=== PATIENT | female | born 1935 | race Hispanic/Latino ===

== ENCOUNTER 2016-12-04 06:19 | Day surgery (SDC) | payer MEDICARE, OTHER ==
[2016-12-01 07:39] VITALS: BMI 30.9
[2016-12-04 07:00] LABS: ADD MANUAL DIFF? NO
[2016-12-04] MEDS ORDERED: Midazolam 2 MG/2 ML VIAL ONE ×2 (07:16→08:22)
[2016-12-04 07:23] LABS: BASO # 0.09 K/mm3 (0.0-2.0); BASO % 1.1 % (0.0-3.0); EOS # 0.3 (0.0-0.7); EOS % 3.4 % (1.5-5.0); GRAN # 4.63 (1.4-6.5); GRAN % 55.7 % (50.0-68.0); HEMATOCRIT 40.5 % (36.0-48.0); LYMPH # 2.6 (1.2-3.4); MEAN CELL VOLUME 89.8 fL (80.0-105.0); MEAN CORPUSCULAR HEMOGLOBIN 30.4 pg (25.0-35.0); MEAN CORPUSCULAR HGB CONC 33.8 g/dl (31.0-37.0); MEAN PLATELET VOLUME 9.9 fl (7.0-11.0); MONO # 0.7 (0.1-0.6); MONO % 8.8 % (1.0-6.0); PLATELET COUNT 232 10^3/uL (120.0-450.0); RED CELL DISTRIBUTION WIDTH 13.6 % (11.5-14.5); WHITE BLOOD COUNT 8.3 10^3/ul (4.5-11.0)
[2016-12-04 07:28] LABS: INR 1.09 (0.93-1.08)
[2016-12-04 07:30] LABS: BLOOD UREA NITROGEN 32 mg/dL (7-21); CALCIUM 9.4 mg/dL (8.4-10.5); CARBON DIOXIDE 27 mmol/L (21-33); CHLORIDE 101 mmol/L (98-107); CHOLESTEROL 135 mg/dL (130-200); GFR AFRICAN-AMERICAN > 60; POTASSIUM 4.4 mmol/L (3.6-5.0); SODIUM 139 mmol/L (132-148)
[2016-12-04 07:38] LABS: GLUCOSE,RANDOM 316 mg/dL (70-110)
[2016-12-04] MEDS ORDERED: Insulin Regular 1 UNITS/0.01 ML ML SC ONE (08:17)
[2016-12-04] MEDS ORDERED: Adenosine 90 mg/30mL IV ONE (08:34)
[2016-12-04] MEDS ORDERED: Sodium Chloride 0.9% 1,000 ML IV SCH (09:30)
--- NOTE | 2016-12-04 10:13 | CARDCATH ---
PROCEDURE DATE: 12/04/2016 HISTORY: The patient is an 81-year-old woman who presents with an abnormal stress test and chest sohail n. PAST MEDICAL HISTORY: Is notable for previous anterior wall myocardial infarction as well as multive ssel PTCA and stent in the past. She suffers from diabetes mellitus, hypercholesterolemia and hypert ension. Because of this, cardiac catheterization was recommended. PROCEDURE: Left heart catheterization with coronary angiography and left ventriculogram. This was f ollowed by FFR and followed by PTCA and stent of an LAD. The right femoral artery was cannulated with a 6-Khmer sheath. There were no complications. The findings on catheterization revealed a left main artery that was unremarkable. The circumflex artery and obtuse marginal branches revealed intimal irregularities without significan t stenoses. The LAD revealed 2 patent stents, one in the proximal and one in the midportion. Proximal to the fir st stent, there was an eccentric 70-80% stenosis seen in the MOLINA projection. The diagonal vessels were free of significant disease. The RCA was a dominant vessel and found to have a patent stent at its ostium with no critical lesions throughout the rest of the vessel. LV function revealed mild apical hypokinesis with an overall preserved LV function with an ejection f raction of 55%. An FFR was performed of the LAD which revealed an FFR of 0.77. The patient was started on intravenous Angiomax. Under fluoroscopic guide, the guiding catheter was placed in the ostium of the left main artery. The FFR wire was used across the LAD lesion. A 2.75 x 18 mm drug-eluting stent was placed and deployed at 14 atmospheres of pressure. Repeat birdie nary angiography revealed an excellent result with resolution of the lesion which was measured approx imately 16 mmHg. Repeat coronary angiography revealed an excellent result with no residual stenosis and LANDON 3 flow. Angio-Seal was used to close the femoral artery site. The patient tolerated the procedure well. IN SUMMARY: 1. The procedure was a successful percutaneous transluminal coronary angioplasty and stent of a crit ically stenosed proximal left anterior descending. 2. Fractional flow reserve was 0.77. 3. Cardiac catheterization revealed patent stent in the right coronary artery with 2 patent stents i n the left anterior descending with a new 80% stenosis in the proximal left anterior descending. 4. Left ventricular function: Ejection fraction was 55% with mild apical hypokinesis. Given these findings, the patient will need to remain on aspirin indefinitely and Plavix for at least a year and undergo a strict cardiac risk reduction program. Oswald Davis MD cc: [phone] TT: 12/04/2016 10:13:19 mn
--- NOTE | 2016-12-04 15:25 | HP ---
The patient is an 81-year-old, known to me from office practice. The patient had stress test done as outpatient that was found to be abnormal, so she was brought in electively to have cardiac catheteri zation done by Dr. Davis and patient is being admitted after the procedure. She did not have any ches t pain. No shortness of breath, no dizziness. PAST MEDICAL HISTORY: Significant for: 1. Hypertension. 2. Coronary artery disease, status post angioplasty. 3. History of sick sinus syndrome, status post pacemaker placement. 4. Hyperlipidemia. ALLERGIES: She is not allergic to any medications. MEDICATIONS AT HOME: She is on simvastatin 40 mg daily, losartan 100 mg daily, insulin 75/25 10 unit s twice a day, Levemir 20 units at bedtime, folic acid 1 mg daily, Plavix 75 daily, atenolol 12.5 haider ly, aspirin 81 daily. SOCIAL HISTORY: She lives in a senior citizen building. Denies smoking, drinking or alcohol use. REVIEW OF SYSTEMS: Significant for back pain and knee pain. PHYSICAL EXAMINATION: GENERAL: She is awake and alert, communicative. VITAL SIGNS: She is afebrile, pulse 61, respirations 18, blood pressure 132/62. LUNGS: Bilateral fair airflow, no rhonchi or crackle. HEART: S1, S2 audible. No murmur. ABDOMEN: Soft, nontender, no rebound, no guarding. NEUROLOGIC: She is awake and alert, communicative. EXTREMITIES: Her right groin has a pressure bandage. Bilateral legs intact pulses. LABORATORY EXAMINATION: WBCs 8.3, hemoglobin 13.7, hematocrit 40, platelets of 232. PT 11.8, INR 1. 09. Chemistry: Sodium 139, potassium 4.4, chloride 101, CO2 27, BUN 32, creatinine 1.0, blood sugar 316. ASSESSMENT: 1. Status post cardiac cath and status post proximal left anterior descending angioplasty and she borrero s patent stent of right coronary artery and 2 patent stents in the anterior descending with a new 80% stenosis in the proximal left anterior descending that was stented. 2. Hypertension. 3. Insulin-dependent diabetes. 4. Hyperlipidemia. PLAN: We will restart patient on her usual medication. I will continue her on IV fluid. I will hol d her CHARLOTTE inhibitor. Will order for CBC, CMP in a.m. If patient remains stable, she will be dischar ge home in a.m. Yoly Osuna MD cc: [phone] TT: 12/04/2016 15:24:34 en
[2016-12-04] MEDS ORDERED: Insulin Lispro (humaLOG) MIX 75/25(10 ml) SC SCH (16:30)
[2016-12-04] MEDS ORDERED: Insulin Detemir 100 units/ml Vial (Levemir) SC SCH (22:00)
--- NOTE | 2016-12-05 02:20 | CARD ---
APPROVED REPORT EKG Measurement Heart [id number] <Conclusion> Electronic ventricular pacemaker
--- NOTE | 2016-12-05 02:27 | CARD ---
APPROVED REPORT EKG Measurement Heart [id number] <Conclusion> Demand Ventricular pacemaker ST & T wave abnormality, consider anterolateral ischemia Prolonged QT Abnormal ECG
[2016-12-05] MEDS ORDERED: Insulin Lispro (humaLOG) MIX 75/25(10 ml) SC SCH (07:30)
[2016-12-05 07:42] LABS: ADD MANUAL DIFF? NO
[2016-12-05 07:49] LABS: BASO # 0.05 K/mm3 (0.0-2.0); BASO % 0.7 % (0.0-3.0); EOS # 0.3 (0.0-0.7); EOS % 3.8 % (1.5-5.0); GRAN # 5.22 (1.4-6.5); GRAN % 68.9 % (50.0-68.0); HEMATOCRIT 40.2 % (36.0-48.0); LYMPH # 1.4 (1.2-3.4); LYMPH % 18.4 % (22.0-35.0); MEAN CELL VOLUME 89.9 fL (80.0-105.0); MEAN CORPUSCULAR HGB CONC 33.3 g/dl (31.0-37.0); MEAN PLATELET VOLUME 9.2 fl (7.0-11.0); MONO # 0.6 (0.1-0.6); MONO % 8.2 % (1.0-6.0); PLATELET COUNT 205 10^3/uL (120.0-450.0); RED CELL DISTRIBUTION WIDTH 13.6 % (11.5-14.5); WHITE BLOOD COUNT 7.6 10^3/ul (4.5-11.0)
[2016-12-05 08:40] LABS: BLOOD UREA NITROGEN 21 mg/dL (7-21); CALCIUM 9.6 mg/dL (8.4-10.5); CARBON DIOXIDE 29 mmol/L (21-33); CHLORIDE 102 mmol/L (98-107); GFR AFRICAN-AMERICAN > 60; GLUCOSE,RANDOM 161 mg/dL (70-110); POTASSIUM 4.4 mmol/L (3.6-5.0); SODIUM 141 mmol/L (132-148)
[2016-12-05 12:10] VITALS: BP 113/68; PULSE 62; RESP 16; TEMP 97.6; O2SAT 97
--- NOTE | 2016-12-05 13:32 | PN ---
DATE: 12/05/2016 The patient is ambulating without chest pain. PHYSICAL EXAMINATION: VITAL SIGNS: Blood pressure is 113/68, heart rate is in the 60s. NECK: Negative JVD. LUNGS: Without rales. HEART: Reveals S1, S2. EXTREMITIES: The right groin site is stable. Hemoglobin of 13.4. Chemistries are unremarkable. Glucose is 161. IMPRESSION: 1. Stable post percutaneous transluminal coronary angioplasty and stent of a left anterior descendin g. 2. Coronary artery disease. 3. Diabetes mellitus. 4. Hypercholesterolemia. Given these findings, the patient is stable for discharge. Followup and instructions have been given to the patient in detail. Oswald Davis MD cc: [phone] TT: 12/05/2016 13:31:47 Confirmation # [id number] Dictation # [id number]
--- NOTE | 2016-12-05 14:14 | DS ---
The patient is 81 years old, seen and examined, lying in bed, comfortable. No chest pain, no shortne ss of breath. No nausea, vomiting, or diarrhea. PHYSICAL EXAMINATION: VITAL SIGNS: She is afebrile, pulse 55, respirations 20, blood pressure 127/72. LUNGS: Bilateral fair airflow, no rhonchi or crackle. HEART: S1, S2 audible. No murmur. ABDOMEN: Soft, obese, nontender. Right cath site looks healthy. No hematoma. NEUROLOGIC: She is awake and alert, communicative. LABORATORY EXAM: WBC 7.6, hemoglobin 13, hematocrit 40, platelet 205. Chemistry: Sodium 141, potas sium 4.4, chloride 102, CO2 of 29, BUN 21, creatinine 0.9, blood sugar of 161. ASSESSMENT AND PLAN: 1. Status post cardiac catheterization. 2. Coronary artery disease, status post angioplasty. 3. Status post proximal left anterior descending angioplasty. 4. Insulin dependent diabetes. 5. Hyperlipidemia. 6. Degenerative disk disease. PLAN: The patient is clinically stable. She will be discharged home. She is given a prescription o f Plavix 75 daily to be given for another year. She will continue on aspirin, folic acid. She will maintain herself on her previous doses of insulin. She will continue on Lipitor and atenolol. I shaniqua l follow up patient in office in 2-3 weeks. Yoly Osuna MD cc: [phone] TT: 12/05/2016 14:14:05 sn
--- NOTE | 2016-12-05 22:42 | CARD ---
APPROVED REPORT EKG Measurement Heart [id number] <Conclusion> Electronic ventricular pacemaker
== END 2016-12-05 14:06 | disposition home or self-care (01) ==
LOC: CATH 06:19 → 2RSO 09:17 → CATH 12-05 14:06
PROVIDERS: ATTEND Internal Medicine
DX: I25.10 Atherosclerotic heart disease of native coronary artery without angina pectoris (principal); I25.2 Old myocardial infarction; I10 Essential (primary) hypertension; E11.9 Type 2 diabetes mellitus without complications; E78.00 Pure hypercholesterolemia, unspecified; E78.5 Hyperlipidemia, unspecified; Z79.82 Long term (current) use of aspirin; Z79.4 Long term (current) use of insulin; Z95.0 Presence of cardiac pacemaker; Z95.5 Presence of coronary angioplasty implant and graft
CPT/HCPCS: 36415 ×2; 80048 ×2; 80061; 82948 ×2; 85025 ×2; 85610; 85730; 86850; 86900; 93005 ×2; 93458; 93571; 99152; 99153; C1760; C1769 ×2; C1874; C1887; C2629; C9600; J0153; J0583; J2250; J3010; J7040 ×2

== ENCOUNTER 2018-03-08 06:02 | Day surgery (SDC) | payer MEDICARE, OTHER ==
[2018-02-25 08:32] VITALS: BMI 31.8
[2018-03-08 07:07] LABS: INR 1.05; PARTIAL THROMBOPLASTIN TIME 28.6 Seconds (25.1-36.5); PROTHROMBIN TIME 12.1 SECONDS (9.4-12.5)
[2018-03-08] MEDS ORDERED: Lidocaine PF 2% (5 ml) Inj (For Cardiac Arrhy) ONE (07:07)
[2018-03-08] MEDS ORDERED: Iodixanol 320 MG/ML 200 ML BOTTLE IV ONE (07:08)
[2018-03-08] MEDS ORDERED: Iohexol 350mgl/ml 50 ML ONE (07:08)
[2018-03-08] MEDS ORDERED: Iodixanol 320 MG/ML 100 ML BOTTLE IV ONE (07:08)
[2018-03-08] MEDS ORDERED: Nitroglycerin 50mg in D5W 0 MG/0 ML BOTTLE IV ONE (07:09)
[2018-03-08] MEDS ORDERED: Phenylephrine 10 mg/ml Inj ONE (07:09)
[2018-03-08 07:14] LABS: BLOOD UREA NITROGEN 19 mg/dL (7-21); CALCIUM 9.8 mg/dL (8.4-10.5); GFR AFRICAN-AMERICAN > 60; GFR NON-AFRICAN AMERICAN 60
[2018-03-08 07:19] LABS: BASO # 0.08 K/mm3 (0.0-2.0); BASO % 0.9 % (0.0-3.0); EOS # 0.2 (0.0-0.7); EOS % 2.4 % (1.5-5.0); GRAN # 5.29 (1.4-6.5); GRAN % 58.8 % (50.0-68.0); HEMOGLOBIN 13.1 g/dL (12.0-16.0); LYMPH # 2.8 (1.2-3.4); LYMPH % 30.6 % (22.0-35.0); MEAN CELL VOLUME 90.6 fl (80.0-105.0); MEAN CORPUSCULAR HGB CONC 33.2 g/dl (31.0-37.0); MEAN PLATELET VOLUME 9.1 fl (7.0-11.0); MONO # 0.7 (0.1-0.6); MONO % 7.3 % (1.0-6.0); RBC 4.36 10^6/uL (3.5-6.1); RED CELL DISTRIBUTION WIDTH 12.9 % (11.5-14.5)
[2018-03-08] MEDS ORDERED: Midazolam 2 MG/2 ML VIAL ONE ×2 (07:59→08:02)
--- NOTE | 2018-03-08 08:23 | CARD ---
APPROVED REPORT Date of service: 03/08/2018 EKG Measurement Heart [id number] <Conclusion> Electronic ventricular pacemaker
[2018-03-08] MEDS ORDERED: Sodium Chloride 0.9% 1,000 ML IV SCH (09:30)
--- NOTE | 2018-03-08 09:44 | CARDCATH ---
Copied To: Oswald Davis MD Attending MD: Oswald Davis MD PROCEDURE DATE: 03/08/2018 PTCA AND STENT HISTORY: The patient is an 82-year-old woman, who presents with an abnormal stress test. The patient has documented coronary artery disease. In addition, she suffers from hypertension, hypercholesterolemia and diabetes mellitus. The patient has had stents in 2 arteries in the past. Because of this, cardiac catheterization was recommended. PROCEDURE: Left heart catheterization with coronary arteriography, left ventriculogram followed by PTCA and stent of an RCA with a drug-eluting stent. Rhe right femoral artery was cannulated with a 6-Cameroonian sheath. There were no complications. I performed moderate sedation, which included the presence of an independent trained observer that assisted in monitoring the patient's level of consciousness and physiologic status. After administration of Versed and fentanyl, my intra service time was 30 minutes. The findings on catheterization revealed a left ventricle that contracted normally. Estimated ejection fraction of 60%. The patient had a right dominant circulation. The RCA revealed a patent stent in the midportion. In its ostium, there is an 80% eccentric stenosis noted. The left main artery was unremarkable. The LAD revealed a patent stent in its proximal portion. The rest of the LAD revealed intimal irregularities without critical lesions. The circumflex artery and obtuse marginal branches were free of significant disease. The patient was started on intravenous Angiomax on the fluoroscopic guide, the guiding catheter was placed in the ostium of the RCA, which is noted marked dampening. An ATW wire was placed in the RCA past critical stenosis. A 2.5 x 8 mm drug-eluting stent was placed and deployed at 14 atmospheres of pressure in the ostium of the RCA. This was postdilated with a 3 balloon. Repeat coronary arteriography revealed resolution of the stenosis with an excellent result with no residual stenosis and LANDON-3 flow. Angio-Seal was used to close the femoral artery site. The patient tolerated the procedure well. In summary, the procedure was successful PTCA and stent of an 80% ostial stenosis of the RCA with a drug-eluting stent. Cardiac catheterization revealed patent stent in the LAD and mid RCA. LV function is normal. Given these findings, the patient will remain on aspirin indefinitely and Plavix for a year and undergo a cardiac risk reduction program. Oswald Davis MD [facility] # [id number]
--- NOTE | 2018-03-08 12:17 | CARD ---
APPROVED REPORT Date of service: 03/08/2018 EKG Measurement Heart [id number] <Conclusion> Electronic ventricular pacemaker
[2018-03-08] MEDS: Insulin Lispro (humaLOG) MIX 75/25(10 ml) SC SCH (13:33)
--- NOTE | 2018-03-08 14:27 | HP ---
Copied To: Yoly Osuna MD Attending MD: Yoly Osuna MD HISTORY OF PRESENT ILLNESS: The patient is 82 years old, known to me from office practice, had recent follow up with Dr. Davis, who scheduled her for elective cardiac catheterization since she was found to have abnormal stress test that was done on 12/10/2017 that showed abnormal myocardial perfusion with partial reversible anterior defects suspicious for residual ischemia. The patient has cardiac cath done today and underwent RCA angioplasty with drug eluted stent and she has patent stents in LAD and mid RCA. Denies any chest pain. No shortness of breath. PAST MEDICAL HISTORY: Significant for, 1. Hypertension. 2. History of symptomatic bradycardia and sick sinus syndrome, has pacemaker placed. 3. Coronary artery disease, status post multiple angioplasty. 4. Hyperlipidemia. 5. Insulin-dependent diabetes. ALLERGIES: SHE IS NOT ALLERGIC TO ANY MEDICATIONS. MEDICATIONS AT HOME: The patient is on losartan 100 mg daily, simvastatin 40 mg daily, Trulicity 1.5 weekly, Plavix 75 daily, insulin 75/25 at 60 units before breakfast and 55 units before dinner. She is on Levemir 20 units at bedtime, atenolol 12.5 daily, aspirin 81 daily, folic acid 1 mg daily. SOCIAL HISTORY: She lives in senior citizen building. Denies smoking, drinking or alcohol use. PHYSICAL EXAMINATION: GENERAL: She is awake, alert, oriented, communicative, not in any distress. No chest pain. No shortness of breath. VITAL SIGNS: She is afebrile, pulse 65, respirations 19, blood pressure 133/71. LUNGS: Bilateral fair airflow. No rhonchi or crackle. HEART: S1 and S2 audible. ABDOMEN: Soft. Nontender. No rebound. No guarding. NEUROLOGICAL: She is awake, alert, oriented, communicative. LABORATORY EXAM: WBC is 9, hemoglobin 13, hematocrit 39.5, platelet 251. PT 12.1, INR 1.05. Chemistry: Sodium 144, potassium 4.5, chloride 104, CO2 of 28, BUN 19, creatinine 0.9, blood sugar of 152. ASSESSMENT: 1. Elective cardiac catheterization with angioplasty and had drug eluted stent placed in right coronary artery. 2. Coronary artery disease. 3. Insulin-dependent diabetes. 4. Hypertension. 5. Hyperlipidemia. 6. Status post pacemaker placement. PLAN: Currently, the patient is on aspirin, atorvastatin, Plavix. We will resume her medication. We will monitor overnight. If she remains stable, possible discharge in the a.m. Yoly Osuna MD
[2018-03-08] MEDS ORDERED: Insulin Lispro (humaLOG) MIX 75/25(10 ml) SC SCH (16:30)
[2018-03-08] MEDS ORDERED: Insulin Detemir 100 units/ml Vial (Levemir) SC SCH (22:00)
[2018-03-08] MEDS ORDERED: INSULIN DETEMIR 20 UNIT SQ SCH (22:00)
[2018-03-09 06:26] VITALS: O2SAT 95
[2018-03-09 07:09] LABS: BASO # 0.05 K/mm3 (0.0-2.0); BASO % 0.5 % (0.0-3.0); EOS # 0.2 (0.0-0.7); EOS % 1.9 % (1.5-5.0); GRAN # 6.14 (1.4-6.5); GRAN % 63.5 % (50.0-68.0); HEMOGLOBIN 12.5 g/dL (12.0-16.0); LYMPH # 2.5 (1.2-3.4); LYMPH % 25.4 % (22.0-35.0); MEAN CORPUSCULAR HEMOGLOBIN 29.6 pg (25.0-35.0); MEAN CORPUSCULAR HGB CONC 32.6 g/dl (31.0-37.0); MEAN PLATELET VOLUME 9.1 fl (7.0-11.0); MONO # 0.8 (0.1-0.6); MONO % 8.7 % (1.0-6.0); RBC 4.22 10^6/uL (3.5-6.1); RED CELL DISTRIBUTION WIDTH 13.1 % (11.5-14.5); WHITE BLOOD COUNT 9.7 10^3/ul (4.5-11.0)
[2018-03-09 07:18] LABS: BLOOD UREA NITROGEN 21 mg/dL (7-21); GFR AFRICAN-AMERICAN > 60; GFR NON-AFRICAN AMERICAN 60
[2018-03-09] MEDS: Insulin Lispro (humaLOG) MIX 75/25(10 ml) SC SCH ×2 (08:47→09:18)
--- NOTE | 2018-03-09 10:28 | CARD ---
APPROVED REPORT Date of service: 03/09/2018 EKG Measurement Heart [id number] <Conclusion> Electronic ventricular pacemaker
[2018-03-09 13:51] VITALS: BP 114/64; PULSE 64; RESP 18; TEMP 98.2
--- NOTE | 2018-03-09 18:00 | DS ---
Copied To: Yoly Osuna MD Attending MD: Yoly Osuna MD HISTORY OF PRESENT ILLNESS: The patient is 82 years old, was electively brought because she has abnormal stress test and needed cardiac cath. Underwent RCA angioplasty, doing well. PHYSICAL EXAMINATION: GENERAL: She is awake, alert, oriented, communicative. VITAL SIGNS: She is afebrile, pulse 61, respirations 20, blood pressure 126/64. LUNGS: Bilateral good airflow. No rhonchi or crackle. HEART: S1 and S2 audible. ABDOMEN: Soft. Nontender. No rebound. No guarding. NEUROLOGICAL: The patient is awake, alert, oriented, communicative. LABORATORY EXAM: WBC is 9.7, hemoglobin 12.5, hematocrit 38.4, platelet 223. Chemistry: Sodium 143, potassium 4.1, chloride 104, CO2 of 28, BUN 21, creatinine 0.9, blood sugar of 126. ASSESSMENT: 1. Abnormal stress test, status post cardiac catheterization, has right coronary artery angioplasty done. 2. History of sick sinus syndrome. 3. Status post pacemaker placement. 4. Insulin-dependent diabetes. 5. Hypertension. 6. Hyperlipidemia. PLAN: The patient is going to be discharged home. She is going to be discharged on losartan, simvastatin, Plavix, Trulicity. She is on insulin. She is going to continue aspirin, atenolol and folic acid. Yoly Osuna MD
== END 2018-03-09 14:19 | disposition home or self-care (01) ==
LOC: CATH 06:02 → 2RSO 09:35 → CATH 03-09 14:19
PROVIDERS: ATTEND Internal Medicine Cardiovascular Disease
DX: I25.10 Atherosclerotic heart disease of native coronary artery without angina pectoris (principal); R94.39 Abnormal result of other cardiovascular function study; I10 Essential (primary) hypertension; E78.00 Pure hypercholesterolemia, unspecified; E78.5 Hyperlipidemia, unspecified; E11.9 Type 2 diabetes mellitus without complications; I49.5 Sick sinus syndrome; Z79.4 Long term (current) use of insulin; Z79.82 Long term (current) use of aspirin; Z95.0 Presence of cardiac pacemaker; Z95.5 Presence of coronary angioplasty implant and graft
CPT/HCPCS: 36415 ×2; 80048 ×2; 82948; 85025 ×2; 85610; 85730; 86850; 86900; 93005 ×2; 93458; 99152; C1725; C1760; C1769 ×2; C1874; C1887; C2629; C9600; J0583; J1644; J2250; J3010; J7030; Q9966; Q9967

== ENCOUNTER 2018-06-10 02:36 | Observation (INO) | payer MEDICARE, OTHER ==
[2018-06-10 02:37] VITALS: BMI 30.9
--- NOTE | 2018-06-10 02:57 | ED PDOC ---
Arrival/HPI - General Chief Complaint: Flu-like Symptoms Time Seen by Provider: 06/10/18 02:41 Historian: Patient - History of Present Illness Narrative History of Present Illness (Text): 06/10/18 02:55 A 82 year old female, whose past medical history includes IDDM, presents to the emergency department complaining of "flu like symptoms" since a week ago. Patient reports experiencing a decreased appetite, weakness, cough, low blood sugar and dyspnea on exertion. Patient denies any fever, chills, chest pain, diarrhea, nausea, vomiting, urinary symptoms, back pain, abdominal pain, neck pain, headache, dizziness, or any other complaints. PMD: Dr. Osuna Time/Duration: 1 week Symptom Onset: Gradual Activities at Onset: Light Context: Home Past Medical History - Provider Review Nursing Documentation Reviewed: Yes - Infectious Disease Hx of Infectious Diseases: None - Tetanus Immunization Tetanus Immunization: Unknown - Past Medical History Past Medical History: No Previous - Cardiac Hx Cardiac Disorders: Yes Hx Pacemaker: Yes - Pulmonary Hx Respiratory Disorders: No - Neurological Hx Neurological Disorder: No - HEENT Hx HEENT Disorder: No - Renal Hx Renal Disorder: No - Endocrine/Metabolic Hx Endocrine Disorders: Yes Hx Diabetes Mellitus Type 2: Yes (IDDM) - Hematological/Oncological Hx Blood Disorders: No - Integumentary Hx Dermatological Disorder: No - Musculoskeletal/Rheumatological Hx Musculoskeletal Disorders: No - Gastrointestinal Hx Gastrointestinal Disorders: No - Genitourinary/Gynecological Hx Genitourinary Disorders: No - Psychiatric Hx Psychophysiologic Disorder: No Hx Substance Use: No - Past Surgical History Past Surgical History: No Previous - Surgical History Hx Cardiac Catheterization: Yes (stents x3) - Anesthesia Hx Anesthesia Reactions: No Hx Malignant Hyperthermia: No - Suicidal Assessment Feels Threatened In Home Enviroment: No Family/Social History - Physician Review Nursing Documentation Reviewed: Yes Family/Social History: No Known Family HX Smoking Status: Never Smoked Hx Alcohol Use: No Hx Substance Use: No Allergies/Home Meds Allergies/Adverse Reactions: Allergies No Known Allergies Allergy (Verified 06/10/18 02:40) Home Medications: Home Meds Medication Instructions Recorded Confirmed Insulin Lispro Mix 75/25 [HumaLOG 55 units SC ACD 03/06/14 03/08/18 Mix 75/25] Simvastatin 40 mg PO QPM 03/06/14 03/08/18 Folic Acid 1 mg PO DAILY 08/31/16 03/08/18 Insulin Detemir [Levemir] 20 units SQ HS 08/31/16 03/08/18 Aspirin [Ecotrin] 81 mg PO DAILY 12/01/16 03/08/18 Atenolol [Tenormin] 12.5 mg PO DAILY 12/01/16 03/08/18 Cholecalciferol (Vitamin D3) 1,000 unit PO BID 12/01/16 03/08/18 [Vitamin D3] Insulin Lispro Mix 75/25 [humalog 60 units SC ACB 12/01/16 03/08/18 Mix 75/25 75 U/Ml-25 U/Ml 10 Ml] Losartan Potassium 100 mg PO DAILY 12/01/16 03/08/18 Clopidogrel [Plavix] 75 mg PO DAILY 12/05/16 03/08/18 Dulaglutide [Trulicity] 1.5 mg SC QWK 12/10/17 03/08/18 Review of Systems - Physician Review All systems were reviewed & negative as marked: Yes - Review of Systems Constitutional: absent: Fevers, Night Sweats Respiratory: Cough. absent: SOB Cardiovascular: RANGEL. absent: Chest Pain Gastrointestinal: Appetite Changes (decreased appetite). absent: Abdominal Pain, Diarrhea, Nausea, Vomiting Genitourinary Female: absent: Urine Output Changes Musculoskeletal: absent: Back Pain, Neck Pain Neurological: Other (weakness). absent: Headache, Dizziness Physical Exam Vital Signs Reviewed: Yes Vital Signs Temp 06/10/18 02:51 98.5 F Temperature: Afebrile - Systems Exam Head: Present: Atraumatic, Normocephalic Pupils: Present: PERRL Extroacular Muscles: Present: EOMI Conjunctiva: Present: Normal Mouth: Present: Moist Mucous Membranes Neck: Present: Normal Range of Motion Respiratory/Chest: Present: Clear to Auscultation, Good Air Exchange. No: Respiratory Distress, Accessory Muscle Use Cardiovascular: Present: Regular Rate and Rhythm, Normal S1, S2. No: Murmurs Abdomen: No: Tenderness, Distention, Peritoneal Signs Back: Present: Normal Inspection Upper Extremity: Present: Normal Inspection. No: Cyanosis, Edema Lower Extremity: Present: Normal Inspection. No: Edema Neurological: Present: GCS=15, CN II-XII Intact, Speech Normal Skin: Present: Warm, Dry, Normal Color. No: Rashes Psychiatric: Present: Alert, Oriented x 3, Normal Insight, Normal Concentration Medical Decision Making ED Course and Treatment: 06/10/18 02:58 Impression: 82 year old female presenting to the emergency room for flu like symptoms. Plan: -- EKG -- Cardiac ISO -- CMP -- Btype natriuretic peptide -- CBC -- COAGs -- Rapid Flu A/B -- Urinalysis -- Reassess and disposition Prior Visits: Notes and results from previous visits were reviewed. Progress Notes: 06/10/18 03:18 EKG: Ordered, reviewed, and independently interpreted the EKG. Rate : 66 BPM Rhythm : Atrial Fibrillation Interpretation : Demand Pacemaker 06/10/18 05:[address] Osuna who accepts the patient into her service for further observation and requests Dr. Davis on consult. - Scribe Statement The provider has reviewed the documentation as recorded by the Scribe Cathleen Swenson All medical record entries made by the Scribe were at my direction and personally dictated by me. I have reviewed the chart and agree that the record accurately reflects my personal performance of the history, physical exam, medical decision making, and the department course for this patient. I have also personally directed, reviewed, and agree with the discharge instructions and disposition. Disposition/Present on Arrival - Present on Arrival Any Indicators Present on Arrival: No History of DVT/PE: No History of Uncontrolled Diabetes: Yes Urinary Catheter: No History of Decub. Ulcer: No History Surgical Site Infection Following: None - Disposition Have Diagnosis and Disposition been Completed?: Yes Diagnosis: Uncontrolled diabetes mellitus, Dyspnea on exertion, Cough Disposition: HOSPITALIZED Disposition Time: :18 Patient Plan: Observation Patient Problems: Current Active Problems Problem Status Onset Uncontrolled diabetes mellitus Acute Dyspnea on exertion Acute Cough Acute Condition: STABLE Referrals: Yoly Osuna MD [Primary Care Provider] - Follow up with primary Forms: [employer] (Taiwanese)
[2018-06-10 04:20] LABS: INR 1.09; PROTHROMBIN TIME 12.5 SECONDS (9.4-12.5)
[2018-06-10 04:22] LABS: ALB/GLOB RATIO 1.2 (1.1-1.8); ALBUMIN 3.9 g/dL (3.0-4.8); ALT/SGPT 31 U/L (7-56); AST/SGOT 56 U/L (14-36); BLOOD UREA NITROGEN 35 mg/dL (7-21); CALCIUM 8.7 mg/dL (8.4-10.5); GFR NON-AFRICAN AMERICAN 43
[2018-06-10 04:34] LABS: B-TYPE NATRIURETIC PEPTIDE 790 pg/mL (0-450); TROPONIN I < 0.01 ng/mL
[2018-06-10 04:42] LABS: HEMOGLOBIN 12.7 g/dL (12.0-16.0); MEAN CELL VOLUME 91.3 fl (80.0-105.0); MEAN CORPUSCULAR HEMOGLOBIN 29.7 pg (25.0-35.0); MEAN CORPUSCULAR HGB CONC 32.6 g/dl (31.0-37.0); MEAN PLATELET VOLUME 9.5 fl (7.0-11.0); RBC 4.27 10^6/uL (3.5-6.1); WHITE BLOOD COUNT 7.2 10^3/uL (4.5-11.0)
[2018-06-10 05:05] LABS: CK-MB 4.9 ng/mL (0.0-3.6)
[2018-06-10 06:03] LABS: URINE BILIRUBIN NEGATIVE (NEGATIVE); URINE BLOOD NEGATIVE (NEGATIVE); URINE GLUCOSE (UA) NEGATIVE (NEGATIVE); URINE LEUKOCYTE ESTERASE SMALL Leu/uL (NEGATIVE); URINE PROTEIN NEGATIVE mg/dL (<30 mg/dL); URINE UROBILINOGEN 0.2 E.U./dL (<1 E.U./dL)
[2018-06-10 06:08] LABS: URINE APPEARANCE SL CLOUDY (CLEAR); URINE COLOR YELLOW (YELLOW)
[2018-06-10 06:17] LABS: URINE RBC 0 - 2 /hpf (0-2)
[2018-06-10 06:18] LABS: URINE BACTERIA TRACE (NEG)
[2018-06-10 06:58] VITALS: O2SAT 99
--- NOTE | 2018-06-10 08:45 | RAD ---
Date of service: 06/10/2018 HISTORY: sob COMPARISON: 08/31/2016 FINDINGS: LUNGS: The lungs are well inflated and clear. PLEURA: No pleural effusions or pneumothorax. CARDIOVASCULAR: The heart is normal in size. There is stable position of left-sided unipolar permanent pacing device. Atherosclerotic aortic arch calcifications are present. OSSEOUS STRUCTURES: Within normal limits for the patient's age. VISUALIZED UPPER ABDOMEN: Normal. OTHER FINDINGS: None. IMPRESSION: No active pulmonary disease.
--- NOTE | 2018-06-10 09:11 | CARD ---
APPROVED REPORT Date of service: 06/10/2018 EKG Measurement Heart [id number] <Conclusion> Sinus rhythm with Mobitz 1 2nd degree AVB and intermittent V. pacing. STTW changes c/w ischemia
--- NOTE | 2018-06-10 18:57 | HP ---
DATE OF EXAM: 06/10/2018 HISTORY OF PRESENT ILLNESS: The patient is 82 years old, known to me from office practice. The patient states she was having cough, congestion since Sunday, it got worse overnight and she was having difficulty breathing. No chest pain, just had shortness of breath, cough, congestion and stuffy nose, so she came to the emergency room for further evaluation and did have chills at home. No nausea or vomiting. No diarrhea. No hemoptysis. No hematemesis. PAST MEDICAL HISTORY: Significant for; 1. Hypertension. 2. Coronary artery disease, status post angioplasty. 3. Insulin-dependent diabetes. 4. Hyperlipidemia. ALLERGIES: THE PATIENT IS NOT ALLERGIC TO ANY MEDICATIONS. MEDICATIONS AT HOME: She is on simvastatin, losartan, Humalog, folic acid, Trulicity, Plavix 75 daily, atenolol 12.5 daily and aspirin 81 daily. SOCIAL HISTORY: Denies smoking, drinking, or alcohol abuse. She lives in senior citizen building. PHYSICAL EXAMINATION: GENERAL: She has runny, stuffy nose, sounds congested. VITAL SIGNS: She is afebrile, pulse 65, respirations 18 and blood pressure 128/85. LUNGS: Bilateral fair airflow. No rhonchi or crackle. HEART: S1 and S2 audible. ABDOMEN: Soft and nontender. No rebound. No guarding. NEUROLOGICAL: The patient is awake, alert, oriented and communicative. LABORATORY EXAM: WBC 7.2, hemoglobin 12.7, hematocrit 39.0 and platelets 212,000. PT 12.5 and INR 1.09. Chemistry; sodium 139, potassium 4.2, chloride , CO2 of 24, BUN 35, creatinine 1.2 and blood sugar 121. CPK 617. BNP 0.01. Urinalysis is unremarkable. Flu test is negative. ASSESSMENT: 1. Upper respiratory tract infection. 2. Asthmatic bronchitis. 3. Hypertension. 4. Coronary artery disease. 5. Insulin-dependent diabetes. PLAN: The patient is clinically stable, just give her antihistamine and I will give her a short course of antibiotics, Ceftin 250 twice a day and some antitussives and she will be discharged today and she will resume all her medications as prior to admission. Yoly Osuna MD [facility] # [id number]
--- NOTE | 2018-06-10 21:21 | CON ---
DATE: 06/10/2018HISTORY: The patient is a 82-year-old woman who presents with a respiratory infection with nasal congestion, cough and intermittent shortness of breath. She denies chest pain. PAST MEDICAL HISTORY: The patient's past medical history includes hypercholesterolemia, hypertension and diabetes mellitus. She has had multivessel PTCA and stent in the past including stent of the ostium, of the RCA in February 2018. In addition, she has stents in the LAD as well as the mid RCA. She denies angina. SOCIAL HISTORY: The patient does not smoke. REVIEW OF SYSTEMS: A 14-point review of systems is reviewed in detail. Her symptoms are dominated by upper respiratory infection with decreased appetite. No chest pain noted. PHYSICAL EXAMINATION: VITAL SIGNS: Blood pressure 128/85, the heart rate is in the 60s, paced rhythm. NECK: Negative JVD. LUNGS: Without rales. HEART: Reveals S1, S2. EXTREMITIES: Without edema. EKG shows a paced rhythm. LABORATORY: BUN and creatinine of 35 and 1.2. The glucose is 68. The ProBNP is 0.01, hemoglobin is 12.7, white count is normal. IMPRESSION: 1. Upper respiratory infection. 2. Stable angina. 3. No evidence for acute coronary syndrome. 4. Multivessel percutaneous transluminal coronary angioplasty and stents in the past. 5. Diabetes mellitus. 6. Hypercholesterolemia. 7. Hypertension. Given these findings, there is no evidence for cardiac component contribution to her present illness. Her symptoms are predominately an upper respiratory infection. Her diabetes medications may need to be adjusted. In addition, the patient appears to be mildly dehydrated. Oswald Davis MD
[2018-06-11 00:14] VITALS: BP 118/59; PULSE 66; RESP 19; TEMP 98.8
--- NOTE | 2018-06-15 10:28 | PQF ---
PROVIDER RESPONSE TEXT: Provider was unable to determine a response for this query. REVIEWER QUERY TEXT: Asthma Specificity and Type Asthma is documented in the Medical Record. Please specify the type and severity of asthma and indic ate if this is associated with exacerbation or status asthmaticus. Such as: -- Mild intermittent -- Mild persistent -- Moderate persistent -- Severe persistent -- Exercise induced bronchospasm -- Cough variant asthma -- Other, please specify The patient's Clinical Indicators include: You document asthmatic bronchitis, which codes to asthma. Please specify as per below. Thank you. Query created by: Marjorie Glez on 06/14/2018 5:50 PM Electronically signed by: Yoly Osuna MD 06/15/2018 10:25 AM
== END 2018-06-10 15:06 | disposition home or self-care (01) ==
LOC: ED 02:36 → ERH 05:19 → 2RNO 07:20
PROVIDERS: ADMIT Internal Medicine; ATTEND Internal Medicine
DX: J06.9 Acute upper respiratory infection, unspecified (principal); I25.118 Atherosclerotic heart disease of native coronary artery with other forms of angina pectoris; E78.5 Hyperlipidemia, unspecified; E11.65 Type 2 diabetes mellitus with hyperglycemia; E78.00 Pure hypercholesterolemia, unspecified; I10 Essential (primary) hypertension; J45.909 Unspecified asthma, uncomplicated; Z79.02 Long term (current) use of antithrombotics/antiplatelets; Z79.4 Long term (current) use of insulin; Z79.82 Long term (current) use of aspirin; Z95.0 Presence of cardiac pacemaker; Z95.5 Presence of coronary angioplasty implant and graft
CPT/HCPCS: 71045; 80053; 81001; 82550; 82553; 82948; 83615; 83880; 84484; 85027; 85610; 85730; 87086; 87804; 93005; 99285; G0378

== ENCOUNTER 2018-08-06 15:01 | Outpatient (CLI) | payer MEDICARE, OTHER | END 2018-08-06 15:02 | disposition home or self-care (01) | LOC: CARDIO 15:02 ==

== ENCOUNTER 2018-11-04 14:25 | Outpatient (CLI) | payer OTHER | END 2018-11-04 14:26 | disposition home or self-care (01) | LOC: CARDIO 14:26 ==